=== PATIENT | female | born 1975 | race Two or more races ===

== ENCOUNTER 2023-07-14 06:06 | Day surgery (SDC) | payer OTHER ==
[2023-07-14] MEDS ORDERED: MACROBID 100 M100 MG PO (13:00)
== END 2023-07-14 16:00 | disposition home or self-care (01) ==
LOC: CIR.AMB 06:06
PROVIDERS: ATTEND Obstetrics & Gynecology Gynecology
DX: N36.1 Urethral diverticulum (principal); Z20.822 Contact with and (suspected) exposure to COVID-19; I10 Essential (primary) hypertension; R07.9 Chest pain, unspecified